=== PATIENT | male | born 1990 | race Caucasian/White ===

== ENCOUNTER 2020-12-28 04:55 | Emergency (ER) | payer OTHER ==
[~2020-12-28] VITALS: Ht 170.2 cm; Wt 86.2 kg
[2020-12-28 05:00] VITALS: BP 149/98
[2020-12-28] MEDS ORDERED: IBU600 MG PO (05:06)
== END 2020-12-28 05:53 | disposition home or self-care (01) ==
LOC: M.ERS 04:55
DX: S90.822A Blister (nonthermal), left foot, initial encounter (principal); S90.821A Blister (nonthermal), right foot, initial encounter; Z59.0 Homelessness; Z86.19 Personal history of other infectious and parasitic diseases; X58.XXXA Exposure to other specified factors, initial encounter; Y93.89 Activity, other specified; Y92.89 Other specified places as the place of occurrence of the external cause; Y99.8 Other external cause status